=== PATIENT | female | born 1965 ===

== ENCOUNTER 2019-02-11 05:12 | Day surgery (SDC) | payer OTHER ==
[2019-02-11] VITALS (11 sets, daily range): BP systolic 110–164; BP diastolic 67–96
[~2019-02-11] VITALS: Ht 157.5 cm; Wt 89.4 kg
[~2019-02-11 05:12] MED LIST: NKM
[2019-02-11] MEDS ORDERED: Zemuron 50mg/5ml Inj IV ONE (06:25)
[2019-02-11] MEDS ORDERED: Bacitracin 50000 Units Vial ONE (06:33)
[2019-02-11] MEDS ORDERED: Thrombin 5000 units TOPIC ONE (06:33)
[2019-02-11] MEDS ORDERED: Gelfoam Size TOPIC ONE (06:33)
[2019-02-11] MEDS ORDERED: LR 1000ml 1,000 ML IVLG SCH (06:34)
[2019-02-11] MEDS ORDERED: oxyCODONE 5mg IR tab ORAL PRN ×3 (06:45→07:00)
[2019-02-11] MEDS ORDERED: HYDROmorphone 1mg/ml Carpuject SUBQ PRN (06:45)
[2019-02-11] MEDS ORDERED: Hydromorphone 0.5mg/0.5ml inj IVP PRN (06:45)
[2019-02-11] MEDS ORDERED: Atropine Sulfate 0.4mg/ml inj IVP PRN (06:45)
[2019-02-11] MEDS ORDERED: HYDROcodone/Acetamin 5/325 tab ORAL PRN (06:45)
[2019-02-11] MEDS ORDERED: DiphenhydrAMINE 50mg/ml Inj IVP PRN (06:45)
[2019-02-11] MEDS ORDERED: Ketorolac 30mg Inj IV PRN ×2 (06:45)
[2019-02-11] MEDS ORDERED: Midazolam 2mg/2ml Inj IVP PRN (06:45)
[2019-02-11] MEDS ORDERED: Meperidine 50mg/ml Inj(FOR RIGORS ONLY) IVP PRN (06:45)
[2019-02-11] MEDS ORDERED: fentaNYL 100 mcg/2 mL IV PRN (06:45)
[2019-02-11] MEDS ORDERED: Acetaminophen (Non formulary) 100 ML IV ONE (06:45)
[2019-02-11] MEDS ORDERED: HYDROcodone/Acetamin 7.5/325 tab ORAL PRN (06:45)
[2019-02-11] MEDS ORDERED: ALPRAZolam 0.25mg tab ORAL PRN (06:45)
[2019-02-11] MEDS ORDERED: Labetalol 5mg/ml 20ml vial IV PRN (06:45)
[2019-02-11] MEDS ORDERED: LORazepam Inj 2mg/ml 1ml IV PRN (06:45)
[2019-02-11] MEDS ORDERED: oxyCODONE HCL/Acetaminophen 5/325mg ORAL PRN (06:45)
[2019-02-11] MEDS ORDERED: Metoclopramide 10mg/2ml Inj IVP PRN (06:45)
[2019-02-11] MEDS ORDERED: Sodium Chloride 10ml vial INJ ONE (06:47)
[2019-02-11] MEDS ORDERED: Lidocaine 1% MPF 10mg/ml 5ml ONE (06:47)
[2019-02-11] MEDS ORDERED: ceFAZolin sod 1 GM in NS 55 ML IVPB ONE (07:00)
[2019-02-11] MEDS ORDERED: LR 1000ml ONE (07:00)
[2019-02-11] MEDS ORDERED: Dexamethasone 20mg/5ml IVP ONE (07:00)
[2019-02-11] MEDS ORDERED: Propofol 1,000mg/ 100ml btl IV ONE (07:00)
[2019-02-11] MEDS ORDERED: Labetalol 5mg/ml 20ml vial IV ONE (07:00)
[2019-02-11] MEDS ORDERED: Neostigmine 1mg/ml 10ml Inj ONE (07:00)
--- NOTE | 2019-02-11 07:00 | Pre-Procedure Note/Attestation ---
Pre-Procedure Note/Attestation Complete Prior to Procedure Planned Procedure: not applicable Procedure Narrative: ACDF C5-C6, anterior plate fixation. Indications for Procedure Pre-Operative Diagnosis: Trauma. HNP radiculopathy Attestation I attest that I discussed the nature of the procedure; its benefits; risks and complications; and alternatives (and the risks and benefits of such alternatives ), prior to the procedure, with the patient (or the patient's legal customer contact representative). I attest that, if there was a reasonable possibility of needing a blood transfusion, the patient (or the patient's legal customer contact representative) was given the [place] [employer] standardized written summary, pursuant to the [place] Blood Safety Act ([place] Health and Safety Code # 1645, as amended). I attest that I re-evaluated the patient just prior to the surgery and that there has been no change in the patient's H&P, except as documented below: Saúl Torres MD February 11, 2019 07:00
--- NOTE | 2019-02-11 07:08 | Anethesia Preoperative Eval ---
Anesthesia Pre-op PMH/ROS General Date of Evaluation: February 11, 2019 Time of Evaluation: 07:01 Anesthesiologist: Nino ASA Score: ASA 2 Mallampati Score Class I : Soft palate, uvula, fauces, pillars visible Class II: Soft palate, uvula, fauces visible Class III: Soft palate, base of uvula visible Class IV: Only hard plate visible Mallampati Classification: Class II Surgeon: Brian Diagnosis: Neck Pain Surgical Procedure: ACDF C5-6 Anesthesia History: none Family History: no anesthesia problems Allergies: Coded Allergies: No Known Allergies (Unverified , 02/10/19) Medications: see eMAR Patient NPO?: Yes NPO Date: February 10, 2019 NPO Time: 1999 Past Medical History Other: obesity PSxH Narrative: SX Hx Anesthesia Pre-op Phys. Exam Physician Exam Last Vital Signs Date Time Temp Pulse Resp B/P (MAP) Pulse Ox O2 Delivery O2 Flow Rate FiO2 02/11/19 06:19 97.0 54 20 110/67 (81) 98 02/11/19 05:48 Room Air Constitutional: NAD Neurologic: CN 2-12 intact Cardiovascular: RRR Respiratory: CTA Gastrointestinal: S/NT/ND Airway Exam Mallampati Score: Class II MO: full ROM: limited Teeth: intact Anesthesia Pre-op A/P Risk Assessment & Plan Assessment: ASA 2 Plan: GA, SED, GlideScope Go Status Change Before Surgery: No Pre-Antibiotics Dru Grams Ancef IV Given Within 1 Hr of Incision: Yes Time Given: 07:26 Joshua Oneill MD February 11, 2019 07:08
--- NOTE | 2019-02-11 07:09 | Immediate Post-Op Evaluation ---
Immediate Post-Op Evalulation Immediate Post-Op Evalulation Procedure: ACDF C5-6 Date of Evaluation: February 11, 2019 Time of Evaluation: 09:40 IV Fluids: 800 LR Blood Products: 0 Estimated Blood Loss: 50 Urinary Output: 0 Blood Pressure Systolic: 164 Blood Pressure Diastolic: 80 Pulse Rate: 67 Respiratory Rate: 16 O2 Sat by Pulse Oximetry: 100 Temperature (Fahrenheit): 97.8 Pain Score (1-10): 2 Nausea: No Vomiting: No Complications 0 Patient Status: awake, reacts, patent, extubated, none Hydration Status: adequate Dru Grams Ancef IV Given Within 1 Hr of Incision: Yes Time Given: 07:26 Joshua Oneill MD February 11, 2019 07:09
[2019-02-11] MEDS ORDERED: fentaNYL 100 mcg/2 mL IV ONE (08:37)
[2019-02-11] MEDS ORDERED: Lidocaine 1% Plain 30 ml INJ ONE (08:45)
[2019-02-11] MEDS ORDERED: Glycopyrrolate 0.2mg/ml 1ml Vial ONE (08:56)
[2019-02-11] MEDS ORDERED: Docusate 100mg/10ml Liq NG SCH (09:00)
--- NOTE | 2019-02-11 09:06 | Brief Operative Note ---
Immediate Post Operative Note Operative Note Pre-op Diagnosis: Trauma. HNP radiculopathy Procedure: ACDF C5-C6 Anterior Plate Bio4 Magnification Xray SSEP Post-op Diagnosis: same as pre-op Findings: consistent w/pre-op dx studies Surgeon: Brian WATTS [employer] Shoes Supervisor: Carolina HOUSER Anesthesiologist: Nino WATTS Anesthesia: general Specimen: yes Complications: none Condition: stable Fluids: anesthesia Estimated Blood Loss: minimal Drains: none Implant(s) used?: Yes Saúl Torres MD February 11, 2019 09:06
[2019-02-11] MEDS ORDERED: Naloxone 0.4mg/ml Inj IVP PRN (09:15)
--- NOTE | 2019-02-11 11:11 | NUR ---
NURSE NOTES: Patient arrived on floor, asleep. IV site intact and patent. Bed in low and locked position, call light in reach. No signs of respiratory distress, vitals stable. Will continue to monitor.
[2019-02-11] MEDS ORDERED: D5 1/2NS 1,000 ML IV SCH (12:00)
[2019-02-11] MEDS: Docusate 100mg cap ORAL SCH ×2 (12:28→17:11)
[2019-02-11] MEDS: Chloraseptic Spray 20mL Bottle ORAL PRN ×2 (14:08→17:12)
--- NOTE | 2019-02-11 14:29 | Diagnostic Imaging Report ---
Indication: Intraoperative imaging Findings: 3 fluoroscopic views of the cervical spine were obtained. Localization image followed by anterior cervical discectomy and fusion at C5-6 demonstrated. IMPRESSION: Intraoperative imaging
--- NOTE | 2019-02-11 15:24 | NUR ---
P.T Note: P.T evaluation completed and tx initiated per spinal protocol. See P.T evaluation for functional status S/P c-spine Sx. Skilled P.T service is warranted to ensure safety , mobility independence and compliance with spinal precautions.
[2019-02-11] MEDS ORDERED: ceFAZolin sod 1 GM in D5W 55 ML IV SCH (15:30)
--- NOTE | 2019-02-11 16:30 | Consultation ---
DATE OF CONSULTATION: 02/11/2019 CONSULTING PHYSICIAN: Kev Travis M.D. REFERRING PHYSICIAN: Saúl Torres M.D. REASON FOR CONSULTATION: Acute pain consult. Dear Dr. Saúl Torres, Thank you kindly for consulting me to evaluate and render an opinion as to how to proceed in the management of the patient's acute postoperative cervical spine pain after her cervical spine instrumentation surgery today. The patient is a 53-year-old obese woman who injured her cervical spine after a slip and fall accident on 01/05/2018. After failing conservative treatment for the past year, she required cervical spine instrumentation surgery today. You consulted me to help with her pain control and postoperative care. I saw the patient at the bedside with her sister who interpreted Irish. I discussed the case with the nurse RN, Amanda along with the hospital pharmacist and yourself Dr. Torres. I performed a detailed History and Physical examination. I reviewed the medical record in detail including multiple hospital records from today's date of surgery at [facility], 02/11/2019. I reviewed multiple preoperative records from Dr. Shah including diagnostic testing. I reviewed multiple records from the nursing and pharmacy departments. PAST MEDICAL HISTORY: 1. Acute postoperative cervical spine pain, status post cervical spine instrumentation surgery by Dr. Saúl Torres January 2019. 2. Slip and fall accident. 3. Obesity. PAST SURGICAL HISTORY: Right ear surgery, section. MEDICATIONS: At home, p.r.n. pain medicines. ALLERGIES: No known drug allergies. The patient was trialed on oxycodone 10 mg tablets and she felt this medication was too strong for her. SOCIAL HISTORY: The patient is accompanied at the bedside by her sister. She lives near [place], [place]. She denies tobacco, alcohol, or illicit drug use. REVIEW OF SYSTEMS: Per Dr. Shah. FAMILY HISTORY: Obesity. PHYSICAL EXAMINATION: VITAL SIGNS: Age 53. Height 5 feet 3 inches, weight 196 pounds, body mass index 36. Afebrile, pulse 64, respirations 20, blood pressure 110/67, oxygen saturation 98% on room air. HEENT: Extraocular muscles intact. Pupils are equal, round, and accommodative. No Duckworth palsy. No Leonardo syndrome. Detailed range of motion of cervical spine and neurologic exam per Dr. Torres. The patient is moving all extremities x4. CHEST: Clear to auscultation. ABDOMEN: Obese. HEART: Regular rate and rhythm. BREASTS: Deferred. GENITOURINARY: Deferred. DIAGNOSTIC TESTING: Shows 12-lead EKG with a heart rate of 53. No evidence for acute cardiac ischemia. Heart rate 53. Preoperative chest x-ray shows no acute cardiopulmonary disease dated 05/01/2018. MRI cervical spine dated 11/23/2018 shows C5-C6 with a 4 mm central disc herniation mildly impressing upon the left ventral cord and mild bilateral foraminal stenosis C6-C7 with a 2 to 3 mm central disc herniation abutting the ventral cord. LABORATORY STUDIES: From 02/01/2019 shows hepatitis B and C, and HIV are all negative. Glucose 79, creatinine 0.6, BUN 14, sodium 141, potassium 4.8, chloride 106, bicarb 25, calcium 9.3. Total protein 7.1, albumin 4.4. Total bilirubin 0.5, alkaline phosphatase 92, AST 20, ALT 23. Hemoglobin A1c 5.4. PTT 32, INR 1.0. White count 5, hematocrit 39, platelets 240. Urinalysis negative. IMPRESSION: 1. Acute postoperative cervical spine pain, status post cervical spine instrumentation surgery by Dr. Saúl Torres January 2019. 2. Slip and fall accident. 3. Obesity. TREATMENT RECOMMENDATIONS: After performing a detailed History and Physical examination with interpretation with the patient's sister at the bedside, I have made the following recommendations to help with her pain control postoperatively. The patient does seem to be somewhat anxious. She also gives a history of being very sensitive to narcotic agent, so I have selected initially starting low doses. The doses can be titrated upwards as needed. In case of anxiety or panic attacks, I have ordered Xanax 2.5 mg orally every 6 hours p.r.n. I have added a dose of Soma 175 mg orally every 8 hours p.r.n. for muscle spasms. I have asked the nursing team to place Chloraseptic spray bottle at the bedside to help with any sore throat complaints. I have ordered incentive spirometer to encourage good pulmonary toilet with her obesity. In case of any headache complaints, I have ordered Fioricet tablets 1 tablet orally every 8 hours p.r.n. for headaches. I have set up a tiered regimen of analgesics depending on her pain levels postoperatively. I have ordered 2.5 mg of instant-release oxycodone every 3 hours p.r.n. for mild pain. I have ordered 5 mg of instant-release oxycodone every 3 hours p.r.n. for moderate pain. I will select a starting dose of Dilaudid at 0.5 mg. I have recommended the subcutaneous route as it should be less adverse side effects versus the intravenous route. I will empirically place the patient on Pepcid 20 mg b.i.d. for GI ulcer prophylaxis. I have ordered p.r.n. dose of Mylanta 30 mL q.6 hours in case of any GERD symptom exacerbation. In case of any nausea symptoms, I have ordered Zofran 4 mg intravenously every 4 hours as a first-line antiemetic. I have also ordered a second-line agent with a dose of Phenergan 12.5 mg intramuscularly every 8 hours p.r.n. I will start the patient on Colace 100 mg b.i.d. I have ordered acetaminophen in case of any postoperative fevers. In case of systolic blood pressure readings greater than 160 mmHg, I have ordered clonidine on a p.r.n. basis at 0.1 mg dose. I have also ordered Benadryl 25 mg q.6 hours in case of any itching complaints. I will defer DVT prophylaxis to the surgeon. The patient already has had a supply of oxycodone 5 mg instant release tablets for home usage. Kev Travis M.D. DR: SETH JOB#: [id number] CC:
--- NOTE | 2019-02-11 16:30 | Operative Note - Dictated ---
DATE OF OPERATION: 02/11/2019 SURGEON: Saúl Torres M.D. MASTER DATA ANALYST: MIK Dong. ANESTHESIOLOGIST: Joshua Oneill M.D. ANESTHESIA: General with intubation. ESTIMATED BLOOD LOSS: Minimal. COMPLICATIONS: None. POSTOPERATIVE CONDITION: Good/stable. ADMITTING/PREOPERATIVE DIAGNOSIS: Posttraumatic cervical neck pain with herniated nucleus pulposus, radiculopathy, neurologic deficit. POSTOPERATIVE DIAGNOSIS: Posttraumatic cervical neck pain with herniated nucleus pulposus, radiculopathy, neurologic deficit. OPERATIVE PROCEDURE: 1. C5-C6 anterior cervical diskectomy with fusion. 2. Interbody osteopromotive material placed, titanium graft. Lordotic. 3. SSEP monitoring. 4. High-power magnification dissection. 5. Intraoperative fluoroscopy x-rays interpreted by surgeon. DESCRIPTION OF PROCEDURE: The patient was was brought to the operating room and in supine position, general anesthesia intubation was induced. IV antibiotics and IV Decadron were administered 30 minutes prior to incision time. After appropriate positioning, incision level was determined with markers on the contralateral aspect of the neck not penetrating the skin. Cross-table imaging then interpreted by Dr. Torres. Level marked, marker was removed. Anterior cervical spine sterilely prepped and draped free in usual sterile fashion. Transverse incision left placed at the appropriate interval sharply through dermis and epidermis. Electrocautery dissection was carried through subcutaneous tissue to the level of the platysmas muscle was identified, isolated, and transected in line with the incision. Under high-power magnification, blunt dissection was carried medial to the sternocleidomastoid muscle and carotid sheath through the deep cervical and pretracheal fascia to the midline between the right and left longus colli muscles. Spine needle that was bent in 90 degrees angles to avoid penetration greater than 3 mm in the disc space was placed in the disk space under direct high-power magnification. Cross-table imaging was obtained interpreted by surgeons demonstrating the correct level. Retractors placed after subperiosteal elevation of longus colli muscles not greater than 3 mm in the mediolateral extent. Anterior osteophyte was resected with Midas Taye bur dissection. Diskectomy was performed to the posterior longitudinal ligament. Cartilage was removed of the cephalad and caudad endplates without violation of the subchondral bone. Posterior longitudinal ligament resected with identification of a herniated nucleus polyposis posterior. No dural tears or leaks occurred anytime during the procedure. SSEP monitoring remained stable. Wound was irrigated with antibiotic-containing saline. After appropriate determination of implant, a 5 mm titanium implant lordotic was inserted after being packed with bioactive material Bio-4. Fluoroscopic imaging obtained demonstrating excellent alignment and positioning. All traction on the neck (10 pounds) was removed. Anterior plate was placed with 12 mm screws placed in a caudad and cephalad position divergent for compression. Screws locked into place. Radiographs obtained demonstrating excellent alignment. Radiographs obtained in AP and lateral planes. Wound was irrigated with antibiotic-containing saline. Exploration revealed no obvious excoriation or laceration of vital structures. FloSeal applied. Re-exploration revealed no obvious excoriation or laceration of vital structures. HemoSeal applied. Sequential reapproximation of the platysmas muscle subcutaneous tissue with transverse surgical strips. Sterile bandage applied maintained in place with tape. The patient was awakened and extubated in the operating room, and transported to postop recovery in a good, stable condition. Saúl Torrse M.D. DR: RIO JOB#: [id number] CC:
--- NOTE | 2019-02-11 18:42 | NUR ---
NURSE NOTES: Patient discharged. Patient voided X5 times, progressed from clear liquid to full liquid diet with no problems. Patient ambulated twice with physical therapy. IV removed and site covered. ID band removed and disposed of. Personal belongings inventoried and sent with patient. Dressing is dry and intact. Patient departed with family in personal vehicle.
--- NOTE | 2019-02-12 06:46 | 48 Hour Post Anesthesia Eval ---
Post Anesthesia Evaluation Procedure: ACDF C5-6 Date of Evaluation: February 12, 2019 Airway: patent Nausea: No Vomiting: No Pain Intensity: 0 Hydration Status: adequate Cardiopulmonary Status: at baseline Mental Status/LOC: patient returned to baseline Post-Anesthesia Complications: 0 Follow-up care needed: ready to discharge Randi Shay MD February 12, 2019 06:46
--- NOTE | 2019-02-12 16:01 | Discharge Summary ---
Discharge Summary Discharge Summary _ DATE OF ADMISSION: 02/11/2019 DATE OF DISCHARGE: 02/11/2019 DISCHARGED BY: Dr. Saúl Torres CORPORATE AUDITOR: Dr. Kev Travis BRIEF HOSPITAL COURSE: Patient is a 53-year-old obese, female, who injured her cervical spine after a slip and fall accident on 01/05/2018. After failing conservative treatment for the past year, she required cervical spine instrumentation. She was diagnosed with posttraumatic cervical neck pain with herniated nucleus pulposus, radiculopathy and neurologic deficits. She was admitted on 02/11/2019 and underwent ACDF C5-C6. She tolerated procedure well. Surgery was uneventful. Post-operatively, patient was admitted under observation for post-op care. She was placed on SCDs for DVT prophylaxis and was encouraged use of incentive spirometer. Patient was given pain management. She was seen by PT. Diet was advanced. Incision was clean, dry and intact. Patient was ambulating well with good pain control and was tolerating diet. Patient was eventually cleared for discharge home. ADMITTING/PREOPERATIVE DIAGNOSIS: Posttraumatic cervical neck pain with herniated nucleus pulposus, radiculopathy, neurologic deficit. POSTOPERATIVE DIAGNOSIS: Posttraumatic cervical neck pain with herniated nucleus pulposus, radiculopathy, neurologic deficit. OPERATIVE PROCEDURE: 1. C5-C6 anterior cervical diskectomy with fusion. 2. Interbody osteopromotive material placed, titanium graft. Lordotic. 3. SSEP monitoring. 4. High-power magnification dissection. 5. Intraoperative fluoroscopy x-rays interpreted by surgeon. (Refer to Operative Report) DISCHARGE DISPOSITION: Patient was discharged home. DISCHARGE MEDICATIONS: Refer to Medication Reconciliation Sheet. DISCHARGE INSTRUCTIONS: Post-op instructions given. Follow-up in a week. I have been assigned to complete a DC summary on this account, I was not involved with the patient's management. Fifi Ayala NP February 12, 2019 16:01
== END 2019-02-11 18:40 | disposition home or self-care (01) ==
LOC: SUR 05:12 → 3E 11:31
DX: M54.12 Radiculopathy, cervical region (principal); M54.2 Cervicalgia; E66.9 Obesity, unspecified; Z86.19 Personal history of other infectious and parasitic diseases; B19.10 Unspecified viral hepatitis B without hepatic coma
CPT/HCPCS: 20930; 22551; 22853; 36415; 72040; 76000; 86850; 86900; 86901; 87081; 97116; 97161; 97530; C1713; J0690; J1100; J1170; J2001; J2250; J2405; J2704; J2710; J3010; 94003; 94150